=== PATIENT | male | born 1990 | race Caucasian/White ===

== ENCOUNTER 2018-01-10 23:08 | Emergency (ER) | payer SELFPAY ==
[~2018-01-10] VITALS: Ht 182.9 cm; Wt 65.0 kg
[2018-01-11 00:32] LABS: HEMATOCRIT 48.8 % (38.0-50.0); HEMOGLOBIN 17.7 G/DL (12.5-16.6); MCH 31.8 PG (29.0-34.0); MCHC 36.3 G/DL (30.0-36.0); MCV 87.6 FL (86-99); PLATELET COUNT 247 K/uL (156-360); RBC DIS.WIDTH-CV 12.3 % (11.8-14.6); RBC DIS.WIDTH-SD 39.8 % (39-53); RED BLOOD COUNT 5.57 M/uL (4.00-5.50); WHITE BLOOD COUNT 11.7 K/uL (4.1-10.2)
[2018-01-11 00:43] LABS: CHLORIDE 100 mEq/L (99-109); POTASSIUM 3.6 mEq/L (3.7-5.4); SODIUM 140 mEq/L (136-147)
[2018-01-11 00:45] LABS: GLUCOSE 90 mg/dL (70-99); TOTAL PROTEIN 8.6 g/dL (6.4-8.3)
[2018-01-11 00:46] LABS: PTT 32.5 SEC (25-37)
[2018-01-11 00:47] LABS: TOTAL BILIRUBIN 0.7 mg/dL (0.0-1.0)
[2018-01-11 00:49] LABS: ALKALINE PHOSPHATASE 92 IU/L (3-129); CREATININE 1.5 mg/dL (0.6-1.3); GFR ESTIMATE (CALCULATED) > 59 mL/min/ (58.99-99999)
[2018-01-11 00:50] LABS: UREA NITROGEN (BUN) 20 mg/dL (9-23)
[2018-01-11 00:51] LABS: AST (GOT) 30 IU/L (2-34)
[2018-01-11 00:52] LABS: ALT (GPT) 68 IU/L (3-49); CREATINE KINASE 218 IU/L (1-294)
[2018-01-11 01:30] VITALS: BP 116/96
== END 2018-01-11 01:31 | disposition home or self-care (01) ==
LOC: EME 23:08
PROVIDERS: Physician Assistant
DX: R25.2 Cramp and spasm (principal); T63.301A Toxic effect of unspecified spider venom, accidental (unintentional), initial encounter; E86.0 Dehydration; F17.200 Nicotine dependence, unspecified, uncomplicated; Z86.69 Personal history of other diseases of the nervous system and sense organs; Z98.890 Other specified postprocedural states
CPT/HCPCS: 80053; 81003; 82550; 85027; 85610; 85730; 99281; 99284; J7030